=== PATIENT | female | born 1980 | race Caucasian/White ===

== ENCOUNTER 2016-05-21 22:03 | Emergency (ER) | payer OTHER ==
--- NOTE | 2016-05-21 23:40 | ED ORDER SUMMARY ---
..... Patient: DEBRA RITCHIE [facility] VisitID: [id number] [place] [address] 36y, F Registration Date/Time: 05/21/2016 ORDER SHEET Weight: 110.2 kg (stated) Allergies: No Known Drug Allergy GENERAL ORDERS: Old Records (Prov 05-12-16 "colon Infection") (22:35 05/21/2016 Miguel MCKEON) (Ack 22:40 ALawrence ER Tech1) (0:20 HSoule) Abdomen 1V Upright Urgent (22:43 05/21/2016 Miguel MCKEON) (Ack 22:46 AL[facility] ER Tech1) (23:24 MCampbell) CBC w Diff Urgent (22:43 05/21/2016 Miguel MCKEON) (Ack 22:46 [facility] Tech1) (23:31 AMcKenna) CMP Urgent (22:43 05/21/2016 Miguel MCKEON) (Ack 22:46 [facility] Tech1) (23:54 AMcKenna) UA-Culture if indicated Urgent (22:43 05/21/2016 Miguel MCKEON) (Ack 22:46 [facility] Tech1) (22:47 AL[facility] Tech1) Amylase Urgent (22:43 05/21/2016 Miguel MCKEON) (Ack 22:46 [facility] Tech1) (23:54 AMcKenna) Lipase Urgent (22:43 05/21/2016 Miguel MCKEON) (Ack 22:46 [facility] Tech1) (23:54 AMcKenna) Urine Drug Screen Urgent (22:43 05/21/2016 Miguel MCKEON) (Ack 22:46 [facility] Tech1) (22:47 [facility] Tech1) Urine Urgent (22:43 05/21/2016 Miguel MCKEON) (Ack 22:46 [facility] Tech1) (22:47 AL[facility] ER Tech1) MEDICATION ORDERS: IV FLUIDS: IV NS : initial bolus none -, then 250 mL/hr for 4h (NOW); Routine (22:43 05/21/2016 Miguel MCKEON) (Ack 22:45 [facility]) (23:04 Carolin R.N.) ORDER SHEET NOTES: [Electronically signed by Yennifer Cochran (00:20 05/22/2016)] [Electronically signed by Case Philippe MD (08:48 05/23/2016)] [Electronically locked/signed by Yennifer Cochran (00:20 05/22/2016)]
--- NOTE | 2016-05-21 23:40 | ED NURSING NOTES ---
Clinical Report - Nurses [facility] [address] [place] [address] 05/21/2016 22:05 Patient: DEBRA RITCHIE TRIAGE Triage time 22:13. Acuity: LEVEL 3. Chief Complaint: ABDOMINAL PAIN and (LLQ pain (was seen at [facility] 05-12-16, told she had a "colon infection" pain feels similar today but pain was on right side at that time..). Alert. No acute distress. --22:23 Kirsten Valdivia R.N. 22:12 05/21/16. BP: 152/85. HR: 80. RR: 15. O2 saturation: 100% on room air. Temp: 99.1 F (oral). Pain level now: 10. --22:23 Kirsten Valdivia R.N. Weight: 110.2 kg stated. Height/Length: 64 inches Per Patient. BMI: 41.7. --22:21 Kirsten Valdivia R.N. Medications Labetalol HCl Oral (Tablet 200 mg) 1 tablet, Q 8hrs. --22:19 Kirsten Valdivia R.N. Amoxicillin Oral (for "colon infection" has 2 pills left in course.). --22:20 Kirsten Valdivia R.N. Naproxen Oral (Tablet 500 mg) 1 tablet, 2x a day. --22:20 Kirsten Valdivia R.N. [place]. --22:20 Kirsten Valdivia R.N. Vicodin Oral, , abd pain , started 05-12. --22:21 Kirsten Valdivia R.N. Allergies No Known Drug Allergy. --22:21 Kirsten Valdivia R.N. History Arrived by private vehicle. Historian: patient. Accompanied by family and father. Primary physician ([facility]). 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 PAST MEDICAL HX: Immunizations: up-to-date. Last normal menstrual period unknown- one month post . SOCIAL HX: Never smoker. No alcohol use or drug use. NUTRITIONAL RISK ASSESSMENT: The nutritional risk assessment revealed no deficiencies. FUNCTIONAL ASSESSMENT: Functional assessment: no impairments noted. --22:23 Kirsten Valdivia R.N. PROBLEMS: Pyelonephritis. Leukocytosis. Ovarian Cyst. Chronic Headache. Hypertension. Migraine Headache. --22: Kirsten Valdivia R.N. ADDITIONAL SURGERIES: Appendectomy. . --22:22 Kirsten Valdivia R.N. Interventions ID band on patient. To treatment room. --22:23 Kirsten Valdivia R.N. PHYSICAL ASSESSMENT Ambulatory to room. Patient gowned. GENERAL / NEURO / PSYCH: Alert. Oriented X 4. Appears in no acute distress. HEENT: Mucous membranes are pink. RESPIRATORY: Respirations not labored. CVS: Capillary refill less than 2 seconds. SKIN: Skin is warm and dry. --22:23 Kirsten Valdivia R.N. NURSING PROGRESS NOTES Head of bed elevated. Two patient identifiers checked. Call light placed in reach. Side rails up x 1. Bed placed in lowest position. Brakes of bed on. --22: Kirsten Valdivia R.N. Patient ready for evaluation- chart flagged. --22:23 Kirsten Valdivia R.N. 23:02 05/21/2016 Site #1 started via IV in the right antecubital space with an 20g angiocath, with aseptic technique and good blood return; one attempt. Saline lock flushed with 10 mL saline. --23:03 Kirsten Valdivia R.N. 23:04 05/21/2016 Started bag #1 1000 mL IV Fluids IV NS (Saline); at 250 mL/hr via site #1 via IV pump. Allergies verified and confirmed 5 rights. IV patency established. IV site checked: no pain, redness, or swelling. IV flushed thoroughly pre- and post-medication administration. --23:04 Kirsten Valdivia R.N. 23:55 05/21/2016 IV Fluids IV NS Discontinued: bag #1 discontinued upon discharge. Total amount infused: 245 mL. IV patency established. IV site checked: no pain, redness, or swelling. IV flushed thoroughly. (IV fluids discontinued, pt cleared for discharge). --23:55 AliM. DISPOSITION / DISCHARGE 23:56 05/21/2016 Site #1 removed upon discharge. Catheter intact. Manual pressure and bandage applied. --23:56 AliM Condition at departure: unchanged and stable. No learning barriers present. Discharge instructions provided and reviewed with the patient. Work note given. Patient verbalized understanding. Written instructions provided in Angolan. ( Taught pt to rest, drink plenty of fluids and stay by bathroom while taking GoLytely.). The patient was discharged by the physician. She was discharged home and accompanied by parent. She left the Emergency Department ambulatory and via private vehicle. Parent driving. FALL RISK ASSESSMENT: Fall risk assessment completed. No fall risk identified. --23:58 AliM 23:56 05/21/16. BP: 136/62. HR: 95. RR: 16 (regular, unlabored and normal). O2 saturation: 100%. Temp: 98.6 F (oral). Pain level now: 8/10. --23:58 AliJanna ( Chart reviewed by writing RN). --00:20 Yennifer Cochran. Locked/Released at 05/22/2016 0:20 by Yennifer Cochran,
--- NOTE | 2016-05-21 23:40 | ED CLINICAL REPORT ---
Clinical Report - Physicians/Mid Levels [facility] [address] [place] [address] 05/21/2016 22:05 Patient: DEBRA RITCHIE Time Seen: 22:24 May 21 2016. Arrived- By private vehicle. Historian- patient. CPT: ER phys charges level 4 (#[id number]). HISTORY OF PRESENT ILLNESS Chief Complaint: ABDOMINAL PAIN. At its maximum, severity described as moderate. When seen in the E.D., severity described as mild. Modifying factors. Not worsened by anything. Not relieved by anything. It is described as "pain", sharp, cramping and well localized. Not located in right lower quadrant. It is described as located in the left lower quadrant. This started last night and is still present. It was gradual in onset and has been constant. No nausea, loss of appetite, vomiting or diarrhea. No recent travel. Similar symptoms previously: None. Recent medical care: The patient was seen recently at another facility in the emergency department (2 weeks ago: She says at [facility] Evaluation/treatment: abdominal CT scan- Amoxicillin. Diagnosis: ("Colon infection"). REVIEW OF SYSTEMS The patient has had constipation. No black stools, hematemesis, difficulty with urination, pain with urination or urinary frequency. PAST HISTORY Pyelonephritis. Leukocytosis. Ovarian Cyst. Chronic Headache. Hypertension. Migraine Headache. --22:22 Kirsten Valdivai R.N. ADDITIONAL SURGERIES: Appendectomy. . 1 month ago. Medications: Vicodin Oral, , abd pain , started 2-21. [place]. Naproxen Oral (Tablet 500 mg) 1 tablet, 2x a day. Amoxicillin Oral (for "colon infection" has 2 pills left in course.). Labetalol HCl Oral (Tablet 200 mg) 1 tablet, Q 8hrs. Allergies: No Known Drug Allergy. SOCIAL HISTORY Never smoker. No alcohol use or drug use. ADDITIONAL NOTES The nursing notes have been reviewed. PHYSICAL EXAM Vital Signs: 05/21/2016 22:12 BP: 152/85. HR: 80. RR: 15. O2 saturation: 100%. Temp: 99.1 F. Pain level now: 8/10. Appearance: Alert. No acute distress. Eyes: Eyes normal inspection. ENT: Pharynx normal. Neck: Normal inspection. Neck supple. CVS: Normal heart rate and rhythm. Heart sounds normal. Pulses normal. Respiratory: No respiratory distress. Breath sounds normal. Chest nontender. Abdomen: Soft. Mild tenderness in the left lower quadrant. Bowel sounds normal. No mass. Back: Normal inspection. No CVA tenderness. Skin: Skin warm. Normal skin color. No rash. Extremities: Extremities exhibit normal ROM. No lower extremity edema. Neuro: Oriented X 3. No motor deficit. No sensory deficit. LABS, X-RAYS, AND EKG KUB: (Moderate stool.). Views: erect AP. Technique: good. The X-rays were independently viewed by me and interpreted contemporaneously by me. Laboratory Tests: UA-Culture if indicated: (BISHNU: 05/21/2016 22:25) ( [facility] 05/21/2016 23:02) Final results Test Result Flag Units (Reference) URINE COLOR YELLOW URINE APPEARANCE CLEAR URINE GLUCOSE NEGATIVE (NEGATIVE) URINE BILIRUBIN NEGATIVE (NEGATIVE) URINE KETONE NEGATIVE (NEGATIVE) URINE SPECIFIC GRAVITY 1.025 (1.010-1.030) URINE PH 6.0 (5.0-8.0) URINE PROTEIN NEGATIVE (NEGATIVE) URINE UROBILINOGEN 0.2 EU/dL (0.2-1.0) URINE NITRITE NEGATIVE (NEGATIVE) URINE BLOOD 1+ (NEGATIVE) URINE LEUK ESTERASE NEGATIVE (NEGATIVE) URINE RBC 3-5 rbc/hpf (0-1) URINE WBC 1-3 wbc/hpf (0-1) URINE EPITHELIAL CELLS 5-10 EPI/hpf (0-5) URINE BACTERIA TRACE (<1+) (NONE SEEN) URINE COMMENT CULT NOT INDICATED MUCUS 2+URINE CULTURES ARE SET-UP BASED ON THE FOLLOWING CRITERIA:POSITIVE NITRITEPOSITIVE LEUKOCYTE ESTERASEGREATER THAN 10 WHITE BLOOD CELLSMODERATE (2+) OR GREATER BACTERIA Urine: (BISHNU: 05/21/2016 22:25) ( [facility] 05/21/2016 22:53) Final results Test Result Flag Units (Reference) URINE NEGATIVE CBC w Diff: (BISHNU: 05/21/2016 23:02) ( MsgRcvd 05/21/2016 23:13) Final results Test Result Flag Units (Reference) WHITE BLOOD COUNT 13.3 H K/uL (4.5-11.5) RED BLOOD COUNT 4.52 M/uL (4.00-5.20) HEMOGLOBIN 12.1 gm/dL (12.0-16.0) HEMATOCRIT 37.6 % (36.0-46.0) MEAN CELL VOLUME 83 fL (80-100) MEAN CORPUSCULAR HGB 27 pg (26-34) MEAN CORPUSCULAR HGB CONC 32 g/dL (31-37) RED CELL DISTRIBUTION WIDTH 16.0 H % (11.6-14.8) PLATELET COUNT 240 K/uL (150-400) LYMPH % 24.9 L % (25-40) MONO % 0.8 L % (3-14) GRANULOCYTE % 74.3 (53-90) Urine Drug Screen: (BISHNU: 05/21/2016 22:25) ( MsgRcvd 05/21/2016 23:17) Final results Test Result Flag Units (Reference) AMPHETAMINE/METHAMPHETAMINE NEGATIVE (NEGATIVE) BARBITURATE NEGATIVE (NEGATIVE) BENZODIAZEPINE NEGATIVE (NEGATIVE) CANNABINOID NEGATIVE (NEGATIVE) COCAINE NEGATIVE (NEGATIVE) ECSTASY NEGATIVE (NEGATIVE) METHADONE NEGATIVE (NEGATIVE) OPIATE POSITIVE H (NEGATIVE) The urine drug screen is a qualitative screening test fordrug overdose and abuse. All screen results should beconsidered as presumptive.Drugs screened for are as follows:BenzodiazepinesCocaineAmphetamines/MetamphetaminesTHC (Tetrahydrocannabinol)OpiatesBarbituratesEcstasyMethadonePositive results are unconfirmed. For confirmation, notifythe lab for the specimen to be sent to the reference lab.All confirmations must be performed by a differentmethodology.The ingestion of natural herbal and plant productscontaining Ephedra/Ephedra metabolites can produce in urineone or more substances capable of cross reacting withamphetamine/methamphetamine immunoassays. These testsprovide a preliminary result only. A more specificalternative chemical method must be used to obtain aconfirmed analytical result. CMP: (BISHNU: 05/21/2016 22:10) ( MsgRcvd 05/21/2016 23:30) Final results Test Result Flag Units (Reference) GLUCOSE 102 mg/dL (70-110) BUN 16 mg/dL (7-18) CREATININE 0.7 mg/dL (0.6-1.3) Estimated GFR >60 mL/min Estimated GFR- >60 mL/min Note: Persistent reduction over 3 months in eGFR<60 mL/min/1.73 m2 defines CKD. Patients with eGFR values>=60 mL/min/1.73 m2 may also have CKD if evidence ofpersistent proteinuria. Additional information may be foundat www.kidney.org. SODIUM 140 mmol/L (136-145) POTASSIUM 3.7 mmol/L (3.5-5.1) CHLORIDE 104 mmol/L (98-107) CARBON DIOXIDE 27 mmol/L (21-32) CALCIUM 8.1 L mg/dL (8.5-10.1) TOTAL PROTEIN 7.3 g/dL (6.4-8.2) ALBUMIN 3.4 g/dL (3.3-5.0) BILIRUBIN, TOTAL 0.4 mg/dL (0.0-1.0) ALKALINE PHOSPHATASE 82 U/L (46-116) AST (SGOT) 16 U/L (15-37) ALT (SGPT) 29 U/L (12-78) LIPASE 181 U/L (73-393) AMYLASE 38 U/L (25-115) . PROGRESS AND PROCEDURES Course of Care: 23:35 05/21/16. No peritoneal pain. Pt has moderate stool on x-ray. No fever, minimal white count and in no distress at this time. Will try GoLytely and have return in 4 hours if not better. No records despite requests. Not clear what this spell was 2 weeks ago. Patient/family counseled. Disposition: Discharged. Condition: stable. CLINICAL IMPRESSION Acute left lower quadrant abdominal pain of unknown cause. INSTRUCTIONS Do not work tomorrow, for one day. Drink plenty of fluids. Warnings: Further evaluation is necessary. GENERAL WARNINGS: Return or contact your physician immediately if your condition worsens or changes unexpectedly, if not improving as expected, or if other problems arise. Your Current Medications: CONTINUE TAKING THE FOLLOWING MEDICATIONS: Amoxicillin Oral : for "colon infection" has 2 pills left in course. Labetalol HCl Oral : Tablet 200 mg, 1 tablet Q 8hrs. Naproxen Oral : Tablet 500 mg, 1 tablet 2x a day. Maggie*. Vicodin Oral : Started: 2, abd pain. Prescription Medications: Zofran (orally disintegrating tablets) 4 mg: take 1 orally every 4 hours as needed for nausea. Dispense five (5). No refill. Substitution is permissible. GoLytely 4 oz every 15 minutes until gone # 1 jug. Follow-up: Return to the emergency department tomorrow in eight hours if not better. Understanding of the discharge instructions verbalized by patient. (Electronically signed by Case Philippe MD 05/23/2016 8:48)
--- NOTE | 2016-05-21 23:40 | ED NURSING NOTES ---
Clinical Report - Nurses [facility] [address] [place] [address] 05/21/2016 22:05 Patient: DEBRA RITCHIE TRIAGE Triage time 22:13. Acuity: LEVEL 3. Chief Complaint: ABDOMINAL PAIN and (LLQ pain (was seen at [facility] 05-12-16, told she had a "colon infection" pain feels similar today but pain was on right side at that time..). Alert. No acute distress. --22:23 Kirsten Valdivia R.N. 22:12 05/21/16. BP: 152/85. HR: 80. RR: 15. O2 saturation: 100% on room air. Temp: 99.1 F (oral). Pain level now: 10. --22:23 Kirsten Valdivia R.N. Weight: 110.2 kg stated. Height/Length: 64 inches Per Patient. BMI: 41.7. --22:21 Kirsten Valdivia R.N. Medications Labetalol HCl Oral (Tablet 200 mg) 1 tablet, Q 8hrs. --22:19 Kirsten Valdivia R.N. Amoxicillin Oral (for "colon infection" has 2 pills left in course.). --22:20 Kirsten Valdivia R.N. Naproxen Oral (Tablet 500 mg) 1 tablet, 2x a day. --22:20 Kirsten Valdivia R.N. [place]. --22:20 Kirsten Valdivia R.N. Vicodin Oral, , abd pain , started 05-12. --22:21 Kirsten Valdivia R.N. Allergies No Known Drug Allergy. --22:21 Kirsten Valdivia R.N. History Arrived by private vehicle. Historian: patient. Accompanied by family and father. Primary physician ([facility]). 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 PAST MEDICAL HX: Immunizations: up-to-date. Last normal menstrual period unknown- one month post . SOCIAL HX: Never smoker. No alcohol use or drug use. NUTRITIONAL RISK ASSESSMENT: The nutritional risk assessment revealed no deficiencies. FUNCTIONAL ASSESSMENT: Functional assessment: no impairments noted. --22:23 Kirsten Valdivia R.N. PROBLEMS: Pyelonephritis. Leukocytosis. Ovarian Cyst. Chronic Headache. Hypertension. Migraine Headache. --22: Kirsten Valdivia R.N. ADDITIONAL SURGERIES: Appendectomy. . --22:22 Kirsten Valdivia R.N. Interventions ID band on patient. To treatment room. --22:23 Kirsten Valdivia R.N. PHYSICAL ASSESSMENT Ambulatory to room. Patient gowned. GENERAL / NEURO / PSYCH: Alert. Oriented X 4. Appears in no acute distress. HEENT: Mucous membranes are pink. RESPIRATORY: Respirations not labored. CVS: Capillary refill less than 2 seconds. SKIN: Skin is warm and dry. --22:23 Kirsten Valdivia R.N. NURSING PROGRESS NOTES Head of bed elevated. Two patient identifiers checked. Call light placed in reach. Side rails up x 1. Bed placed in lowest position. Brakes of bed on. --22: Kirsten Valdivia R.N. Patient ready for evaluation- chart flagged. --22:23 Kirsten Valdivia R.N. 23:02 05/21/2016 Site #1 started via IV in the right antecubital space with an 20g angiocath, with aseptic technique and good blood return; one attempt. Saline lock flushed with 10 mL saline. --23:03 Kirsten Valdivia R.N. 23:04 05/21/2016 Started bag #1 1000 mL IV Fluids IV NS (Saline); at 250 mL/hr via site #1 via IV pump. Allergies verified and confirmed 5 rights. IV patency established. IV site checked: no pain, redness, or swelling. IV flushed thoroughly pre- and post-medication administration. --23:04 Kirsten Valdivia R.N. 23:55 05/21/2016 IV Fluids IV NS Discontinued: bag #1 discontinued upon discharge. Total amount infused: 245 mL. IV patency established. IV site checked: no pain, redness, or swelling. IV flushed thoroughly. (IV fluids discontinued, pt cleared for discharge). --23:55 AliM. DISPOSITION / DISCHARGE 23:56 05/21/2016 Site #1 removed upon discharge. Catheter intact. Manual pressure and bandage applied. --23:56 AliM Condition at departure: unchanged and stable. No learning barriers present. Discharge instructions provided and reviewed with the patient. Work note given. Patient verbalized understanding. Written instructions provided in [place]i. ( Taught pt to rest, drink plenty of fluids and stay by bathroom while taking GoLytely.). The patient was discharged by the physician. She was discharged home and accompanied by parent. She left the Emergency Department ambulatory and via private vehicle. Parent driving. FALL RISK ASSESSMENT: Fall risk assessment completed. No fall risk identified. --23:58 AliM 23:56 05/21/16. BP: 136/62. HR: 95. RR: 16 (regular, unlabored and normal). O2 saturation: 100%. Temp: 98.6 F (oral). Pain level now: 8/10. --23:58 AliJanna ( Chart reviewed by writing RN). --00:20 Yennifer Cochran. Locked/Released at 05/22/2016 0:20 by Yennifer Cochran,
--- NOTE | 2016-05-21 23:40 | ED ORDER SUMMARY ---
..... Patient: DEBRA RITCHIE OrderSheet [facility] VisitID: [id number] [place] [address] 36y, F Registration Date/Time: 05/21/2016 ORDER SHEET Weight: 110.2 kg (stated) Allergies: No Known Drug Allergy GENERAL ORDERS: Old Records (Prov 05-12-16 "colon Infection") (22:35 05/21/2016 Miguel MCKEON) (Ack 22:40 ALawrence ER Tech1) (0:20 HSoule) Abdomen 1V Upright Urgent (22:43 05/21/2016 Miguel MCKEON) (Ack 22:46 ALawrence ER Tech1) (23:24 MCampbell) CBC w Diff Urgent (22:43 05/21/2016 Miguel MCKEON) (Ack 22:46 ALawrence ER Tech1) (23:31 AMcKenna) CMP Urgent (22:43 05/21/2016 Miguel MCKEON) (Ack 22:46 ALawrence ER Tech1) (23:54 AMcKenna) UA-Culture if indicated Urgent (22:43 05/21/2016 Miguel MCKEON) (Ack 22:46 ALawrence ER Tech1) (22:47 ALawrence ER Tech1) Amylase Urgent (22:43 05/21/2016 Miguel MCKEON) (Ack 22:46 ALawrence ER Tech1) (23:54 AMcKenna) Lipase Urgent (22:43 05/21/2016 Miguel MCKEON) (Ack 22:46 ALawrence ER Tech1) (23:54 AMcKenna) Urine Drug Screen Urgent (22:43 05/21/2016 Miguel MCKEON) (Ack 22:46 ALawrence ER Tech1) (22:47 ALawrence ER Tech1) Urine Urgent (22:43 05/21/2016 Miguel MCKEON) (Ack 22:46 ALawrence ER Tech1) (22:47 ALawrence ER Tech1) MEDICATION ORDERS: IV FLUIDS: IV NS : initial bolus none -, then 250 mL/hr for 4h (NOW); Routine (22:43 05/21/2016 Miguel MCKEON) (Ack 22:45 [facility]) (23:04 Carolin R.N.) ORDER SHEET NOTES: [Electronically signed by Yennifer Cochran (00:20 05/22/2016)] [Electronically signed by Case Philippe MD (08:48 05/23/2016)] [Electronically locked/signed by Yennifer Cochran (00:20 05/22/2016)]
--- NOTE | 2016-05-22 00:27 | DIAGNOSTIC IMAGING REPORT ---
PROCEDURE: XR ABDOMEN 1 VIEW UPRIGHT INDICATION: ABDOMINAL PAIN, initial encounter TECHNIQUE: AP upright view. COMPARISON: None. FINDINGS: Mild stool. No free air, mass or suspicious calcification. Minor levoconvex thoracolumbar spine scoliosis. IMPRESSION: 1. Mild stool.
--- NOTE | 2016-05-23 08:48 | ED DISCHARGE INSTRUCTIONS ---
Patient: DEBRA RITCHIE General Instructions [facility] VisitID: [id number] [place] [address] 36y, F Registration Date/Time: 05/21/2016 Acute left lower quadrant abdominal pain of unknown cause. INSTRUCTIONS Do not work tomorrow, for one day. Drink plenty of fluids. Warnings: Further evaluation is necessary. GENERAL WARNINGS: Return or contact your physician immediately if your condition worsens or changes unexpectedly, if not improving as expected, or if other problems arise. Your Current Medications: CONTINUE TAKING THE FOLLOWING MEDICATIONS: Amoxicillin Oral : for "colon infection" has 2 pills left in course. Labetalol HCl Oral : Tablet 200 mg, 1 tablet Q 8hrs. Naproxen Oral : Tablet 500 mg, 1 tablet 2x a day. Maggie*. Vicodin Oral : Started: 05-12, abd pain. Prescription Medications: Zofran (orally disintegrating tablets) 4 mg: take 1 orally every 4 hours as needed for nausea. Dispense five (5). No refill. Substitution is permissible. GoLytely 4 oz every 15 minutes until gone # 1 jug. Follow-up: Return to the emergency department tomorrow in eight hours if not better. Understanding of the discharge instructions verbalized by patient. ADDITIONAL INFORMATION Abdominal Pain, Unknown Cause (Female) The exact cause of your abdominal (stomach) pain is not certain. This does not mean that this is something to worry about, or the right tests were not done. Everyone likes to know the exact cause of the problem, but sometimes with abdominal pain, there is no clear-cut cause, and this could be a good thing. The good news is that your symptoms can be treated, and you will feel better. Your condition does not seem serious now; however, sometimes the signs of a serious problem may take more time to appear. For this reason,it is important for you to watch for any new symptoms, problems,or worsening of your condition. Over the next few days, the abdominal pain may come and go, or be continuous. Other common symptoms can include nausea and vomiting. Sometimes it can be difficult to tell if you feel nauseous, you may just feel bad and not associate that feeling with nausea. Constipation, diarrhea, and a fever may go along with the pain. The pain may continue even if treated correctly over the following days. Depending on how things go, sometimes the cause can become clear and may require further or different treatment. Additional evaluations, medications, or tests may be needed. Home care Your health care provider may prescribe medications for pain, symptoms, or an infection. Follow the health care provider's instructions for taking these medications. General care Rest until your next exam. No strenuous activities. Try to find positions that ease discomfort. A small pillow placed on the abdomen may help relieve pain. Something warm on your abdomen (such as a heating pad) may help, but be careful not to burn yourself. Diet Do not force yourself to eat, especially if having cramps, vomiting, or diarrhea. Water is important so you do not get dehydrated. Soup may also be good. Sports drinks may also help, especially if they are not too acidic. Make sure you don't drink sugary drinks as this can make things worse. Take liquids in small amounts. Do not guzzle them. Caffeine sometimes makes the pain and cramping worse. Avoid dairy products if you have vomiting or diarrhea. Don't eat large amounts at a time. Wait a few minutes between bites. Eat a diet low in fiber (called a low-residue diet). Foods allowed include refined breads, white rice, fruit and vegetable juices without pulp, tender meats. These foods will pass more easily through the intestine. Avoid whole-grain foods, whole fruits and vegetables, meats, seeds and nuts, fried or fatty foods, dairy, alcohol and spicy foods until your symptoms go away. Follow-up care Follow up with your health care provider as instructed, or if your pain does not begin to improve in the next 24 hours. When to seek medical care Seek prompt medical care if any of the following occur: Pain gets worse or moves to the right lower abdomen New or worsening vomiting or diarrhea Swelling of the abdomen Unable to pass stool for more than three days Fever of 100.4F (38C) or higher, or as directed by your healthcare provider. Blood in vomit or bowel movements (dark red or black color) Jaundice (yellow color of eyes and skin) Weakness, dizziness Chest, arm, back, neck or jaw pain Unexpected vaginal bleeding or missed period Call 911 Call emergency services if any of the following occur: Trouble breathing Confusion Fainting or loss of consciousness Rapid heart rate Seizure Ondansetron Oral disintegrating tablet What is this medicine? ONDANSETRON (on ANA se fay) is used to treat nausea and vomiting caused by chemotherapy. It is also used to prevent or treat nausea and vomiting after surgery. How should I use this medicine? These tablets are made to dissolve in the mouth. Do not try to push the tablet through the foil backing. With dry hands, peel away the foil backing and gently remove the tablet. Place the tablet in the mouth and allow it to dissolve, then swallow. While you may take these tablets with water, it is not necessary to do so. Talk to your beater tender regarding the use of this medicine in children. Special care may be needed. What side effects may I notice from receiving this medicine? Side effects that you should report to your doctor or health care transitions manager as soon as possible: allergic reactions like skin rash, itching or hives, swelling of the face, lips, or tongue breathing problems dizziness fast or irregular heartbeat feeling faint or lightheaded, falls fever and chills swelling of the hands and feet tightness in the chest Side effects that usually do not require medical attention (report to your doctor or health care transitions manager if they continue or are bothersome): constipation or diarrhea headache What may interact with this medicine? Do not take this medicine with any of the following medications: -apomorphine -cisapride -dofetilide -dronedarone -pimozide -thioridazine -ziprasidone This medicine may also interact with the following medications: -carbamazepine -phenytoin -rifampicin -tramadol -other medicines that prolong the QT interval (cause an abnormal heart rhythm) What if I miss a dose? If you miss a dose, take it as soon as you can. If it is almost time for your next dose, take only that dose. Do not take double or extra doses. Where should I keep my medicine? Keep out of the reach of children. Store between 2 and 30 degrees C (36 and 86 degrees F). Throw away any unused medicine after the expiration date. What should I tell my health care provider before I take this medicine? They need to know if you have any of these conditions: heart disease history of irregular heartbeat liver disease low levels of magnesium or potassium in the blood an unusual or allergic reaction to ondansetron, granisetron, other medicines, foods, dyes, or preservatives or trying to get breast-feeding What should I watch for while using this medicine? Check with your doctor or health care transitions manager as soon as you can if you have any sign of an allergic reaction. You have been given the following additional information: Abdominal Pain, Unknown Cause, (Female) Ondansetron Oral disintegrating tablet Do not work tomorrow, for one day. (Electronically signed by Case Philippe MD 05/23/2016 8:48)
--- NOTE | 2016-05-23 08:48 | ED MAR SUMMARY ---
..... Medication Administration Record [facility] [address] [place] [address] Patient: DEBRA RITCHIE Visit ID: [id number] 36y, F Weight: 110.2 kg Height/Length: 64 in BMI: 41.7 ALLERGIES: No Known Drug Allergy Start 23:04 05/21/2016 Kirsten Valdivia R.N., Stop 23:55 05/21/2016 [place], Medication Administered: IV NS (SALINE), Dose: IV Fluids, Rate: 250 mL/hr, Dispensed: 1000 mL bag, Site: #1 right AC. Medication Ordered: IV NS : initial bolus none -, then 250 mL/hr for 4h (NOW); Routine.
--- NOTE | 2016-05-23 08:48 | ED MAR SUMMARY ---
..... Medication Administration Record [facility] [address] [place] [address] Patient: DEBRA RITCHIE Visit ID: [id number] 36y, F Weight: 110.2 kg Height/Length: 64 in BMI: 41.7 ALLERGIES: No Known Drug Allergy Start 23:04 05/21/2016 Kirsten Valdivia R.N., Stop 23:55 05/21/2016 [place], Medication Administered: IV NS (SALINE), Dose: IV Fluids, Rate: 250 mL/hr, Dispensed: 1000 mL bag, Site: #1 right AC. Medication Ordered: IV NS : initial bolus none -, then 250 mL/hr for 4h (NOW); Routine.
--- NOTE | 2016-05-23 08:48 | ED MED RECONCILIATION SUMMARY ---
Patient: DEBRA RITCHIE Medication Reconciliation Report [facility] VisitID: [id number] [address] [place] [address] 36y, F Registration Date/Time: 05/21/2016 Weight: 110.2 kg Height/Length: 64 in. BMI: 41.7 ALLERGIES: No Known Drug Allergy The patient's Home Medications are listed below: CONTINUE TAKING THE FOLLOWING MEDICATIONS: Amoxicillin Oral, for "colon infection" has 2 pills left in course. Labetalol HCl Oral (200 mg) 1 tablet, Q 8hrs Naproxen Oral (500 mg) 1 tablet, 2x a day [place] Vicodin Oral, abd pain The source(s) of the original Home Medication information: Not obtained. The following Medications were given to the patient in the Emergency Department: IV NS IV Fluids bolus 0, then 250 mL/hr, administered: 05/21/2016 11:04:00 PM The following Medications were prescribed to the patient: Zofran (orally disintegrating tablets) 4 mg: take 1 orally every 4 hours as needed for nausea. Dispense five (5). No refill. Substitution is permissible. -- Case Philippe MD GoLytely 4 oz every 15 minutes until gone # 1 jug. -- Case Philippe MD
--- NOTE | 2016-05-23 08:48 | ED MED RECONCILIATION SUMMARY ---
Patient: DEBRA RITCHIE Medication Reconciliation Report [facility] VisitID: [id number] [address] [place] [address] 36y, F Registration Date/Time: 05/21/2016 Weight: 110.2 kg Height/Length: 64 in. BMI: 41.7 ALLERGIES: No Known Drug Allergy The patient's Home Medications are listed below: CONTINUE TAKING THE FOLLOWING MEDICATIONS: Amoxicillin Oral, for "colon infection" has 2 pills left in course. Labetalol HCl Oral (200 mg) 1 tablet, Q 8hrs Naproxen Oral (500 mg) 1 tablet, 2x a day [place] Vicodin Oral, abd pain The source(s) of the original Home Medication information: Not obtained. The following Medications were given to the patient in the Emergency Department: IV NS IV Fluids bolus 0, then 250 mL/hr, administered: 05/21/2016 11:04:00 PM The following Medications were prescribed to the patient: Zofran (orally disintegrating tablets) 4 mg: take 1 orally every 4 hours as needed for nausea. Dispense five (5). No refill. Substitution is permissible. -- Case Philippe MD GoLytely 4 oz every 15 minutes until gone # 1 jug. -- Case Philippe MD
== END 2016-05-21 23:48 | disposition home or self-care (01) ==
LOC: ED SRH 22:03
DX: R10.32 Left lower quadrant pain (principal); I10 Essential (primary) hypertension; G43.909 Migraine, unspecified, not intractable, without status migrainosus; Z79.899 Other long term (current) drug therapy
CPT/HCPCS: 90004; 90100; 92235; 92530; 92760; 92761; 92762; 92763; 92764; 92765; 92766; 92767; 93070; 95059